=== PATIENT | female | born 1990 | race Caucasian/White ===

== ENCOUNTER 2016-07-03 20:19 | Emergency (ER) | payer OTHER ==
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
[2016-07-03] MEDS ORDERED: ADDERALL PO (20:28)
== END 2016-07-03 22:33 | disposition home or self-care (01) ==
LOC: SED 20:19
DX: S09.90XA Unspecified injury of head, initial encounter (principal); S80.01XA Contusion of right knee, initial encounter; V49.10XA Passenger injured in collision with unspecified motor vehicles in nontraffic accident, initial encounter
CPT/HCPCS: 29530; 70450; 72040; 73560; 84703; 99284